=== PATIENT | male | born 1995 | race Two or more races ===

== ENCOUNTER 2024-10-14 23:32 | Emergency (ER) | payer MEDICAID, OTHER ==
[~2024-10-14] VITALS: Ht 185.4 cm; Wt 77.3 kg
[2024-10-14] MEDS: HALOPERIDOL LACTATE 5 MG/ML INJ VIAL IM ONE (23:42)
[2024-10-15 00:40] VITALS: BP 142/83; PULSE 82; RESP 16; TEMP 98.2; O2SAT 99
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
== END 2024-10-15 00:46 ==
LOC: ER 23:32 → EDBD 23:32 → ER 10-15 00:46
DX: S00.81XA Abrasion of other part of head, initial encounter (principal); F10.920 Alcohol use, unspecified with intoxication, uncomplicated; Z65.3 Problems related to other legal circumstances; X58.XXXA Exposure to other specified factors, initial encounter; Y93.89 Activity, other specified; Y92.009 Unspecified place in unspecified non-institutional (private) residence as the place of occurrence of the external cause; Y99.8 Other external cause status; Y90.9 Presence of alcohol in blood, level not specified
CPT/HCPCS: 70450; 82947; 96372; 99285; J1630